=== PATIENT | male | born 1980 | race Caucasian/White ===

== ENCOUNTER → 2017-03-02 | Outpatient (CLI) | payer OTHER ==
--- NOTE | 2017-03-02 16:58 | REP ---
RIGHT HAND, FOUR VIEWS: HISTORY: Contusion. There is no acute fracture or dislocation. The joint spaces are normal in appearance. IMPRESSION: There is no acute fracture or dislocation. Signed by Teodoro Pressley MD 03/03/2017 08:16 A
== END ==
LOC: M WUC 15:31
PROVIDERS: ATTEND Physician Assistant
DX: S60.221A Contusion of right hand, initial encounter (principal); Y92.89 Other specified places as the place of occurrence of the external cause; X58.XXXA Exposure to other specified factors, initial encounter; Y99.9 Unspecified external cause status

== ENCOUNTER 2018-11-22 10:27 | Emergency (ER) | payer OTHER ==
[~2018-11-22] VITALS: Ht 180.3 cm; Wt 113.6 kg
[2018-11-22 10:27] VITALS: BP 139/90
[2018-11-22] MEDS ORDERED: BACT800T5 PO (11:17)
[2018-11-22] MEDS: BACTRIM 160MG/800MG DS TAB PO ONE (11:21)
== END 2018-11-22 11:26 | disposition home or self-care (01) ==
LOC: M ED 10:27
DX: L03.115 Cellulitis of right lower limb (principal)

== ENCOUNTER 2019-11-20 14:56 | Day surgery (SDC) | payer BC, OTHER ==
[~2019-11-20] VITALS: Ht 180.3 cm; Wt 126.1 kg
[~2019-11-20 14:56] MED LIST: BACT800T5 PO
[2019-11-20 15:41] LABS: BASO # 0.1 10^3/uL (0.0-0.2); BASO % 0.8 % (0.0-1.0); EOS # 0.3 10^3/uL (0.0-0.5); EOS % 2.5 % (0.0-3.0); HEMATOCRIT 43.6 % (42.0-52.0); HEMOGLOBIN 14.9 g/dl (13.5-17.5); LYMPH # 2.8 10^3/uL (1.5-5.0); LYMPH % 27.7 % (24.0-44.0); MEAN CORPUSCULAR HEMOGLOBIN 31.3 pg (27.0-33.0); MEAN CORPUSCULAR HGB CONC 34.2 g/dl (32.0-36.5); MEAN CORPUSCULAR VOLUME 91.6 fl (80.0-96.0); MONO # 0.8 10^3/uL (0.0-0.8); MONO % 7.8 % (0.0-5.0); NEUTROPHILS # 6.1 10^3/uL (1.5-8.5); NEUTROPHILS % 60.8 % (36.0-66.0); PLATELET COUNT, AUTOMATED 252 10^3/uL (150-450); RED BLOOD COUNT 4.76 10^6/uL (4.30-6.10)
[2019-11-20 16:10] LABS: ALBUMIN 3.9 GM/DL (3.2-5.2); BILIRUBIN,DIRECT 0.1 MG/DL (0.0-0.2); BILIRUBIN,TOTAL 0.7 MG/DL (0.2-1.0); TOTAL PROTEIN 7.4 GM/DL (6.4-8.2)
[2019-11-20] MEDS ORDERED: ISOVUE-370 76% 100ML VIAL (Q9967) As Ordered ONE (16:29)
[2019-11-20] MEDS ORDERED: PIPERACILLIN/TAZOBACTAM SOD 3.375 GM in D5W MINI-BAG PLUS 50 ML IV ONE (17:45)
--- NOTE | 2019-11-20 18:20 | REP ---
HISTORY: Right lower quadrant pain. COMPARISON: 12/03/2011 CONTRAST: 100 mL [id number] The lung bases are clear and unchanged. Since the last examination diffuse low density has developed throughout the hepatic parenchyma. The spleen, pancreas, adrenal glands and kidneys are unchanged. There is a right renal cyst, status quo. The gallbladder is contracted, but otherwise is within normal limits. There is no free fluid or free air. The abdominal aorta and periaortic regions are within normal limits. There is abnormal fatty infiltration of the mesoappendix with abnormal enhancement and enlargement of the appendix when compared to the prior exam. There is no free fluid in the pelvis. There is no pelvic mass or adenopathy. Bone window technique throughout the examination shows the osseous structures to be within normal limits. IMPRESSION: 1. Findings consistent with acute appendicitis. 2. There is diffuse fatty infiltration of the liver. 3. There is a single right renal cyst. Electronically Signed by Richard Ruiz DO 11/20/2019 07:30 P
[2019-11-20] MEDS ORDERED: MORPHINE 4 MG/ML 1ML VIAL/SYRINGE (J2270) IV STA (20:38)
[2019-11-20] MEDS ORDERED: NICOTINE 14 MG/24 HR TRANSDERMAL TD SCH (21:00)
[2019-11-20] MEDS ORDERED: fentaNYL 250 MCG/5 ML INJECTION (J3010) As Ordered ONE (21:13)
[2019-11-20] MEDS ORDERED: MIDAZOLAM INJ 2 MG/2 ML VIAL (J2250) As Ordered ONE (21:14)
[2019-11-20] MEDS ORDERED: propofoL 200 MG/20 ML VIAL As Ordered ONE (21:16)
[2019-11-20] MEDS ORDERED: dexameTHASONE 4 MG/ML 1ML VIAL (J1100 PER 1MG) As Ordered ONE (21:16)
[2019-11-20] MEDS ORDERED: LIDOCAINE 2% INJ 100 MG/5 ML SDV (FOR ANES.) As Ordered ONE (21:16)
[2019-11-20] MEDS ORDERED: ONDANSETRON 4MG/2ML VIAL (J2405) As Ordered ONE (21:16)
[2019-11-20] MEDS ORDERED: BUPIVACAINE/EPIN 0.25% 30 ML VIAL As Ordered ONE (21:16)
[2019-11-20] MEDS ORDERED: ROCURONIUM BROMIDE 50 MG/5 ML VIAL As Ordered ONE ×2 (21:16→22:10)
[2019-11-20] MEDS ORDERED: DESFLURANE 240 ML INHALANT As Ordered ONE (21:54)
[2019-11-20] MEDS ORDERED: SUGAMMADEX SODIUM 500 MG/5 ML VIAL (BRIDION) As Ordered ONE (22:08)
[2019-11-20] MEDS ORDERED: ACETAMINOPHEN 1000MG 100ML IV BTL (OFIRMEV) (J0131 PER 10MG) As Ordered ONE (22:14)
[2019-11-20] MEDS ORDERED: HYDR-3713 PO (22:30)
--- NOTE | 2019-11-20 22:36 | HPE ---
DATE OF ADMISSION: 11/20/2019 CHIEF COMPLAINT: The patient is a 39-year-old male who presented to the hospital with a history of right lower quadrant abdominal pain that started yesterday afternoon. It sort of went away in the evening and then this morning it came back and got worse. He tried eating around noon today, and the pain did not go away. It continued to persist, so he came in to be evaluated. He denies any fevers or chills. Slight nausea. No vomiting. No lack of appetite. No recent travel or trauma. No changes in medications. PAST MEDICAL HISTORY: Attention-deficit hyperactivity disorder (ADHD). PAST SURGICAL HISTORY: Vasectomy and surgery to untie his tongue. ALLERGIES: EFFEXOR. MEDICATIONS: None currently. SOCIAL HISTORY: He smokes three-quarters of a pack a day. Denies drug or alcohol abuse. FAMILY HISTORY: Noncontributory. REVIEW OF SYSTEMS: Pertinent positives and negatives as stated in the history of the present illness. PHYSICAL EXAMINATION: General: Alert and oriented times three. No acute distress. Vital signs: Temperature 97.6, pulse 71, respirations 18, blood pressure 128/65, pulse ox 97% on room air. HEENT: Pupils equally round and react to light and accommodation. Heart: S1, S2, regular rate and rhythm. Lungs: Clear to auscultation bilaterally. Abdomen: Soft, tender to palpation right lower quadrant. Localized guarding. No rigidity. Extremities: No clubbing, cyanosis or edema. LABORATORY DATA: White count 10, hemoglobin 14.9, platelets 252. CT abdomen and pelvis was done, compared to a prior CT and it now shows abnormal fatty infiltration of the mesoappendix with abnormal enhancement and enlargement of the appendix compared to prior exam. No free fluid in the pelvis. No masses or adenopathy. Findings consistent with appendicitis. Diffuse fatty infiltration of the liver and a single right renal cyst. ASSESSMENT/PLAN: The patient is a 39-year-old male, signs and symptoms consistent with acute appendicitis. Recommendation is to proceed with laparoscopic, possible open appendectomy. Risks and benefits of the procedure not limited to, but including bleeding, infection, hernia formation, damage to surrounding structures, and need for further surgery were discussed in detail with the patient. Informed consent was obtained and procedure was planned for this evening. Postoperatively, since his labs were normal, if the surgery goes well, I will plan for discharge home this evening as long as his pain is controlled. He claims that he will likely go home tonight. If not, I will discharge him home in the morning.
[2019-11-20] MEDS ORDERED: fentaNYL 100 MCG/2 ML INJECTION (J3010) As Ordered ONE (22:38)
[2019-11-20] MEDS: fentaNYL 100 MCG/2 ML INJECTION (J3010) IV PRN ×2 (22:39→22:45)
[2019-11-20] MEDS ORDERED: ONDANSETRON 4MG/2ML VIAL (J2405) IV PRN (22:45)
[2019-11-20] MEDS ORDERED: oxyCODONE 5MG TAB PO PRN (22:45)
[2019-11-20] MEDS ORDERED: LR 1,000 ML IV SCH (22:45)
[2019-11-20 23:26] VITALS: BP 121/76
[2019-11-21] VITALS (7 sets, daily range): BP systolic 114–134; BP diastolic 77–84
--- NOTE | 2019-11-21 00:30 | RO ---
DATE OF PROCEDURE: 11/20/2019 PREOPERATIVE DIAGNOSIS: Acute appendicitis. POSTOPERATIVE DIAGNOSIS: Acute appendicitis. PROCEDURE: Laparoscopic appendectomy. SURGEON: Dr. Jorge Leon SALAD COUNTER ATTENDANT: None. ANESTHESIA: General. ESTIMATED BLOOD LOSS: 5 mL. The patient is a 39-year-old male who presented with right lower quadrant pain, found to have acute appendicitis. Recommendation was to proceed with laparoscopic, possible open appendectomy. Risks and benefits of the procedure not limited to but including bleeding, infection, hernia formation, damage to surrounding structures, and need for further surgery were discussed in detail with the patient. Informed consent was obtained and procedure was planned. DESCRIPTION OF PROCEDURE: The patient was brought operating room three, after sufficient sedation, the abdomen was sterilely prepped and draped. Next, a time-out was done to confirm proper patient, proper procedure. Following that, a 5 mm incision was made in left upper quadrant, Veress needle inserted and the abdomen was insufflated 15 mmHg. Veress needle was then removed, and a 5 mm Optiview port was used to gain access to the abdomen. Once the abdomen was entered, 8 mm port was placed supraumbilically in the midline, another 5 mm port suprapubically in the midline. The right lower quadrant was examined. There was severe inflammation, appeared to be some ischemic fat surrounding the appendix and large lobules. Once the appendix was identified, it was dissected free using Enseal all way until the base was reached. Once the base was reached, the base of the appendix was ligated with two PDS Endoloops and then amputated using the Enseal, brought out through a 5 mm Endo Catch bag. The right lower quadrant was aspirated. No signs of any purulent fluid or pus. The appendix was then brought out through the supraumbilical port site. The fascia at that port site was closed with an #0 Vicryl suture on a Trip-Oliver needle. The abdomen was then desufflated. Skin incisions were closed with #4-0 Vicryl subcuticular sutures. The abdomen was cleaned and dried. Steri-Strips, 4x4, and tape were applied, thus ending procedure.
[2019-11-21] MEDS: NORCO, ANEXSIA 5/325MG TABLET (HYDROcodone/ACETAMINOPHEN) PO PRN ×2 (00:33→06:39)
== END 2019-11-21 08:17 | disposition home or self-care (01) ==
LOC: M ED 14:56 → M SDC 17:48 → M MSPAV 23:26 → M SDC 11-21 08:17
PROVIDERS: ATTEND Surgery
DX: K35.890 Other acute appendicitis without perforation or gangrene (principal); F90.9 Attention-deficit hyperactivity disorder, unspecified type; F17.218 Nicotine dependence, cigarettes, with other nicotine-induced disorders; Z79.899 Other long term (current) drug therapy; Z88.8 Allergy status to other drugs, medicaments and biological substances
CPT/HCPCS: 44970; 74177; 80047; 80076; 81001; 83690; 85025; 88304; 96365; 99283; J0131; J1100; J2250; J2405; J2543; J3010; Q9967

== ENCOUNTER → 2020-01-11 | Outpatient (CLI) | payer BC ==
[~2020-01-11] MED LIST changes: +HYDR-3713 PO
== END ==
LOC: M LABSMTC 12:50
PROVIDERS: ATTEND Family Medicine
DX: Z11.59 Encounter for screening for other viral diseases (principal)
CPT/HCPCS: C9803; U0003

== ENCOUNTER → 2020-06-23 | Outpatient (REF) | payer BC ==
[2020-06-23 13:28] LABS: BASO # 0.1 10^3/uL (0.0-0.2); EOS # 0.4 10^3/uL (0.0-0.5); EOS % 3.9 % (0.0-3.0); HEMATOCRIT 46.6 % (42.0-52.0); HEMOGLOBIN 15.2 g/dl (13.5-17.5); LYMPH # 3.3 10^3/uL (1.5-5.0); MEAN CORPUSCULAR HEMOGLOBIN 30.6 pg (27.0-33.0); MEAN CORPUSCULAR HGB CONC 32.6 g/dl (32.0-36.5); MEAN CORPUSCULAR VOLUME 93.8 fl (80.0-96.0); MONO # 0.7 10^3/uL (0.0-0.8); MONO % 8.2 % (0.0-5.0); NEUTROPHILS # 4.5 10^3/uL (1.5-8.5); NEUTROPHILS % 49.7 % (36.0-66.0); PLATELET COUNT, AUTOMATED 281 10^3/uL (150-450); RED BLOOD COUNT 4.97 10^6/uL (4.30-6.10)
[2020-06-23 14:20] LABS: ALT/SGPT 66 U/L (12-78); BILIRUBIN,TOTAL 0.5 MG/DL (0.2-1.0); BLOOD UREA NITROGEN 12 MG/DL (7-18); CARBON DIOXIDE LEVEL 23 MEQ/L (21-32); CHLORIDE LEVEL 109 MEQ/L (98-107); CHOLESTEROL LEVEL 193 MG/DL (<200); CHOLESTEROL RISK RATIO 6.655 (<5); CREATININE FOR GFR 0.93 MG/DL (0.70-1.30); GLOMERULAR FILTRATION RATE > 60.0 (>60); GLUCOSE, FASTING 100 MG/DL (70-100); HDL CHOLESTEROL 29 MG/DL (>40); LDL CHOLESTEROL 103 MG/DL (<100); NON-HDL-C 164 MG/DL; POTASSIUM SERUM 4.6 MEQ/L (3.5-5.1); SODIUM LEVEL 140 MEQ/L (136-145); TOTAL PROTEIN 7.4 GM/DL (6.4-8.2); TRIGLYCERIDES LEVEL 306 MG/DL (<150)
== END ==
LOC: M SFHCADAM 08:41
PROVIDERS: ATTEND Family Medicine
DX: Z00.00 Encounter for general adult medical examination without abnormal findings (principal)

== ENCOUNTER 2020-11-26 16:14 | Emergency (ER) | payer OTHER ==
[~2020-11-26] VITALS: Ht 180.3 cm; Wt 117.8 kg
[2020-11-26] MEDS ORDERED: ESOM40CA35 (16:28)
[2020-11-26] MEDS ORDERED: IBUP1TAB7 PO (16:28)
[2020-11-26] MEDS ORDERED: AMPH1CAP16 (16:28)
--- NOTE | 2020-11-26 17:46 | REPVR ---
PROCEDURE INFORMATION: Exam: CT Head Without Contrast Exam date and time: 11/26/2020 5:28 PM Age: 40 years old Clinical indication: Injury or trauma; Other: Hit head fork lift; Blunt trauma (contusions or hematomas) TECHNIQUE: Imaging protocol: Computed tomography of the head without contrast. Axial and coronal reformatted images were created and reviewed. Radiation optimization: All CT scans at this facility use at least one of these dose optimization techniques: automated exposure control; mA and/or kV adjustment per patient size (includes targeted exams where dose is matched to clinical indication); or iterative reconstruction. COMPARISON: No relevant prior studies available. FINDINGS: Brain: No CT evidence of acute intracranial hemorrhage or acute territorial infarction. No significant mass effect or midline shift. Basal cisterns patent. Cerebral ventricles: Normal in size and configuration. Bones/joints: No acute osseous abnormality. Paranasal sinuses: Mild ethmoid, sphenoid and left maxillary sinus mucosal thickening. Mastoid air cells: Grossly unremarkable. Soft tissues: Grossly unremarkable. IMPRESSION: 1. No CT evidence of acute intracranial pathology. 2. Additional findings, as above. Electronically signed by: Donovan Ann On 11/26/2020 17:47:13 PM
--- NOTE | 2020-11-26 17:52 | REPVR ---
PROCEDURE INFORMATION: Exam: CT Cervical Spine Without Contrast Exam date and time: 11/26/2020 5:28 PM Age: 40 years old Clinical indication: Injury or trauma; Other: Hit head fork lift; Blunt trauma TECHNIQUE: Imaging protocol: Computed tomography images of the cervical spine without contrast. Axial, coronal and sagittal reformatted images were created and reviewed. Radiation optimization: All CT scans at this facility use at least one of these dose optimization techniques: automated exposure control; mA and/or kV adjustment per patient size (includes targeted exams where dose is matched to clinical indication); or iterative reconstruction. COMPARISON: No relevant prior studies available. FINDINGS: Bones/joints: Straightening of the normal cervical lordosis. No CT evidence of acute fracture, dislocation or subluxation. Alignment anatomic. Vertebral body heights maintained. Discs/Spinal canal/Neural foramina: Intervertebral disc spaces preserved. No significant spinal canal or neural foraminal stenosis. Lungs: Grossly unremarkable. Soft tissues: Grossly unremarkable. IMPRESSION: 1. No CT evidence of acute cervical spine traumatic injury. 2. Additional findings, as above. Electronically signed by: Donovan Ann On 11/26/2020 17:52:59 PM
[2020-11-26] MEDS ORDERED: diazePAM 5MG TABLET PO ONE (18:20)
--- NOTE | 2020-11-26 19:31 | REPVR ---
PROCEDURE INFORMATION: Exam: MR Cervical Spine Without Contrast Exam date and time: 11/26/2020 6:17 PM Age: 40 years old Clinical indication: Injury or trauma; Work related; Crushing; Injury date: Today; Injury details: PT stood up and hit head on metal lift, neck pain and left upper extremity numbness; Additional info: Left hand numbness S/P axial load injury TECHNIQUE: Imaging protocol: Multiplanar magnetic resonance images of the cervical spine without contrast. COMPARISON: CT Spine,cervical w/o contrast 11/26/2020 5:26 PM FINDINGS: Straightening of the normal cervical lordosis. Alignment anatomic. Bone marrow signal normal. No MR evidence of acute fracture, dislocation or subluxation. Vertebral body heights maintained. No abnormal signal within the visualized spinal cord. No fluid collection or soft tissue mass. Intervertebral disc spaces preserved. No significant spinal canal or neural foraminal stenosis. IMPRESSION: No acute pathology. Electronically signed by: Donovan Ann On 11/26/2020 19:31:46 PM
[2020-11-26 19:46] VITALS: BP 136/85
[2020-11-26] MEDS ORDERED: CYCL-707 PO (19:56)
[2020-11-26] MEDS ORDERED: KETO10TAB PO (19:56)
[2020-11-26] MEDS ORDERED: KETOROLAC TROMETHAMINE 10 MG TAB PO ONE (20:00)
[2020-11-26] MEDS ORDERED: CYCLOBENZAPRINE 10MG TABLET PO ONE (20:00)
== END 2020-11-26 20:12 | disposition home or self-care (01) ==
LOC: M ED 16:14
DX: S09.90XA Unspecified injury of head, initial encounter (principal); S16.1XXA Strain of muscle, fascia and tendon at neck level, initial encounter; W22.8XXA Striking against or struck by other objects, initial encounter; Y92.9 Unspecified place or not applicable; Y93.9 Activity, unspecified; Y99.0 Civilian activity done for income or pay; F17.200 Nicotine dependence, unspecified, uncomplicated; F12.10 Cannabis abuse, uncomplicated; Z88.8 Allergy status to other drugs, medicaments and biological substances; Z79.899 Other long term (current) drug therapy

== ENCOUNTER → 2021-06-12 | Outpatient (CLI) | payer OTHER ==
[~2021-06-12] MED LIST changes: +AMPH1CAP16; +CYCL-707 PO; +ESOM40CA35; +IBUP1TAB7 PO; +KETO10TAB PO
--- NOTE | 2021-06-12 12:46 | REP ---
INDICATION: CERVICALGIA. NO HISTORY OF TRAUMA WHATSOEVER COMPARISON: 10/31/2013 TECHNIQUE: Seven views FINDINGS: Vertebral body height and alignment is unchanged and again seen to be within normal limits. The disc spaces are symmetric and well maintained throughout status quo. Flexion and extension is not limited radiographically. The intervertebral foramina are ample bilaterally and the neural canal is not encroached upon. The facet joints are well aligned bilaterally. IMPRESSION: Within normal limits and essentially unchanged compared to the prior exam. <Electronically signed by Richard Ruiz > 06/12/21 [id number]
--- NOTE | 2021-06-12 14:54 | REP ---
INDICATION: CERVICALGIA. COMPARISON: None. TECHNIQUE: Four views FINDINGS: Vertebral body height and alignment is within normal limits. The disc spaces are symmetric and well maintained. There is no spondylolysis or spondylolisthesis. The pedicles are intact bilaterally. IMPRESSION: Unremarkable lumbosacral spine series. There is no evidence of an acute osseous abnormality. <Electronically signed by Richard Ruiz > 06/12/21 [id number]
== END ==
LOC: M RAD 12:02
PROVIDERS: ATTEND Chiropractor
DX: M54.2 Cervicalgia (principal)

== ENCOUNTER → 2021-06-25 | Outpatient (CLI) | payer OTHER | LOC: M LABSMTC 10:51 | PROVIDERS: ATTEND Pediatrics | DX: Z11.52 Encounter for screening for COVID-19 (principal) ==

== ENCOUNTER → 2021-07-14 | Outpatient (CLI) | payer OTHER | LOC: M SLEEP HO 11:36 | PROVIDERS: ATTEND Physician Assistant | DX: G47.30 Sleep apnea, unspecified (principal) ==

== ENCOUNTER → 2021-08-13 | Outpatient (REF) | payer OTHER | LOC: M SFHCADAM 18:25 | PROVIDERS: ATTEND Family Medicine | DX: R05.9 Cough, unspecified (principal) ==

== ENCOUNTER → 2021-10-22 | Outpatient (REF) | payer OTHER | LOC: M SFHCADAM 08:44 | PROVIDERS: ATTEND Family Medicine | DX: E78.5 Hyperlipidemia, unspecified (principal); R05.9 Cough, unspecified; F41.8 Other specified anxiety disorders; Z53.9 Procedure and treatment not carried out, unspecified reason ==

== ENCOUNTER → 2021-11-19 | Outpatient (CLI) | payer OTHER | LOC: M PLAIMG 09:33 | PROVIDERS: ATTEND Physician Assistant | DX: M25.512 Pain in left shoulder (principal) ==

== ENCOUNTER → 2022-07-25 | Outpatient (CLI) | payer OTHER ==
[~2022-07-25] MED LIST changes: -AMPH1CAP16; +AMPH1CAP16 PO; +MELO15TA28 PO; +PANT40TA29 PO; +PARO5TAB PO
== END ==
LOC: M LABSMTC 11:22
PROVIDERS: ATTEND Anesthesiology
DX: Z01.812 Encounter for preprocedural laboratory examination (principal); Z11.52 Encounter for screening for COVID-19

== ENCOUNTER 2022-07-28 10:52 | Day surgery (SDC) | payer OTHER ==
[~2022-07-28] VITALS: Ht 180.3 cm; Wt 116.1 kg
[~2022-07-28 10:52] MED LIST changes: +LIDOCAINE 2% 100MG/5ML SDV (FOR ANES.) As Ordered ONE; +MIDAZOLAM INJ 2MG/2ML VIAL (J2250 PER 1MG) As Ordered ONE; +ONDANSETRON 4MG 2ML VIAL As Ordered ONE; +ROCURONIUM BROMIDE 50MG/5ML VIAL As Ordered ONE; +fentaNYL 100 MCG/2 ML INJECTION As Ordered ONE; +propofoL 200 MG/20 ML VIAL As Ordered ONE
[2022-07-28] MEDS ORDERED: LR 1,000 ML IV SCH ×2 (11:15→14:40)
[2022-07-28] MEDS ORDERED: LIDOCAINE 1% SDV 5ML VIAL SC PRN (11:15)
[2022-07-28] MEDS ORDERED: CIPRODEX OTIC SUSP 7.5ML As Ordered ONE (12:22)
[2022-07-28] MEDS ORDERED: PHENYLEPHRINE 0.5% NASAL SPRAY 15 ML As Ordered ONE (12:22)
[2022-07-28] MEDS ORDERED: METHYLENE BLUE 0.5% (5MG/ML) 10 ML AMP (PROVAYBLUE) As Ordered ONE (12:50)
[2022-07-28] MEDS ORDERED: EPINEPHrine 1MG/ML INJ 30ML MD-VIAL As Ordered ONE (12:50)
[2022-07-28] MEDS ORDERED: SUGAMMADEX SODIUM 500 MG/5 ML VIAL (BRIDION) As Ordered ONE (13:32)
[2022-07-28] MEDS ORDERED: fentaNYL 100 MCG/2 ML INJECTION As Ordered ONE (13:33)
[2022-07-28] MEDS ORDERED: ACETAMINOPHEN 1000MG 100ML IV BAG As Ordered ONE (13:34)
[2022-07-28] MEDS ORDERED: ROCURONIUM BROMIDE 50MG/5ML VIAL As Ordered ONE (13:41)
[2022-07-28] MEDS ORDERED: fentaNYL 100 MCG/2 ML INJECTION IV PRN (14:40)
[2022-07-28] MEDS ORDERED: ONDANSETRON 4MG 2ML VIAL IV PRN (14:40)
[2022-07-28] MEDS: PERCOCET 5MG/325MG TAB PO PRN ×2 (15:08→15:35)
[2022-07-28 16:40] VITALS: BP 135/77
== END 2022-07-28 16:45 | disposition home or self-care (01) ==
LOC: M SDC 10:52
PROVIDERS: ATTEND Otolaryngology
DX: H65.91 Unspecified nonsuppurative otitis media, right ear (principal); J39.2 Other diseases of pharynx; J34.2 Deviated nasal septum; H69.91 Unspecified Eustachian tube disorder, right ear; H90.71 Mixed conductive and sensorineural hearing loss, unilateral, right ear, with unrestricted hearing on the contralateral side; F90.9 Attention-deficit hyperactivity disorder, unspecified type; K21.9 Gastro-esophageal reflux disease without esophagitis; F41.9 Anxiety disorder, unspecified; G47.30 Sleep apnea, unspecified; Z79.899 Other long term (current) drug therapy; Z88.8 Allergy status to other drugs, medicaments and biological substances; F17.210 Nicotine dependence, cigarettes, uncomplicated
CPT/HCPCS: 42999; 69436; 88305; 88331; 93005; J0131; J0171; J1100; J2250; J2405; J3010

== ENCOUNTER → 2022-08-25 | Outpatient (CLI) | payer OTHER ==
[~2022-08-25] MED LIST changes: -LIDOCAINE 2% 100MG/5ML SDV (FOR ANES.) As Ordered ONE; -MIDAZOLAM INJ 2MG/2ML VIAL (J2250 PER 1MG) As Ordered ONE; -ONDANSETRON 4MG 2ML VIAL As Ordered ONE; -ROCURONIUM BROMIDE 50MG/5ML VIAL As Ordered ONE; -fentaNYL 100 MCG/2 ML INJECTION As Ordered ONE; -propofoL 200 MG/20 ML VIAL As Ordered ONE
== END ==
LOC: M PLARAD 14:01
PROVIDERS: ATTEND Otolaryngology
DX: C85.11 Unspecified B-cell lymphoma, lymph nodes of head, face, and neck (principal)
CPT/HCPCS: 78815; A9552

== ENCOUNTER → 2022-09-16 | Outpatient (CLI) | payer OTHER ==
[~2022-09-16] MED LIST changes: +LIDOCAINE 1% MDV 20ML VIAL As Ordered ONE
[2022-09-16 13:10] VITALS: BP 131/85
[2022-09-16 13:38] LABS: BASO # 0.1 10^3/uL (0.0-0.2); BASO % 0.9 % (0.0-1.0); EOS # 0.3 10^3/uL (0.0-0.5); EOS % 2.9 % (0.0-3.0); HEMATOCRIT 46.4 % (42.0-52.0); HEMOGLOBIN 15.5 g/dl (13.5-17.5); LYMPH # 3.7 10^3/uL (1.5-5.0); LYMPH % 32.8 % (24.0-44.0); MEAN CORPUSCULAR HEMOGLOBIN 30.9 pg (27.0-33.0); MEAN CORPUSCULAR HGB CONC 33.4 g/dl (32.0-36.5); MEAN CORPUSCULAR VOLUME 92.4 fl (80.0-96.0); PLATELET COUNT, AUTOMATED 287 10^3/uL (150-450); RED BLOOD COUNT 5.02 10^6/uL (4.30-6.10); WHITE BLOOD COUNT 11.2 10^3/uL (4.0-10.0)
== END ==
LOC: M IRPRO 12:13
PROVIDERS: ATTEND Internal Medicine Medical Oncology
DX: C85.11 Unspecified B-cell lymphoma, lymph nodes of head, face, and neck (principal)

== ENCOUNTER → 2022-09-30 | Outpatient (CLI) | payer OTHER ==
[~2022-09-30] MED LIST changes: -LIDOCAINE 1% MDV 20ML VIAL As Ordered ONE
== END ==
LOC: M LABSMTC 10:59
PROVIDERS: ATTEND Anesthesiology
DX: Z01.812 Encounter for preprocedural laboratory examination (principal); Z11.52 Encounter for screening for COVID-19

== ENCOUNTER 2022-10-05 10:58 | Day surgery (SDC) | payer OTHER ==
[~2022-10-05] VITALS: Ht 180.3 cm; Wt 123.1 kg
[2022-10-05] MEDS ORDERED: LR 1,000 ML IV SCH (11:10)
[2022-10-05] MEDS ORDERED: IBUP-1114 PO (11:50)
[2022-10-05] MEDS ORDERED: LIDOCAINE 2% 100MG/5ML SDV (FOR ANES.) As Ordered ONE (12:20)
[2022-10-05] MEDS ORDERED: ROCURONIUM BROMIDE 50MG/5ML VIAL As Ordered ONE ×2 (12:20→14:30)
[2022-10-05] MEDS ORDERED: propofoL 200 MG/20 ML VIAL As Ordered ONE ×2 (12:21→14:28)
[2022-10-05] MEDS ORDERED: SUGAMMADEX SODIUM 500 MG/5 ML VIAL (BRIDION) As Ordered ONE (12:21)
[2022-10-05] MEDS ORDERED: ONDANSETRON 4MG 2ML VIAL As Ordered ONE (12:23)
[2022-10-05] MEDS ORDERED: ACETAMINOPHEN 1000MG 100ML IV BAG As Ordered ONE (12:27)
[2022-10-05] MEDS ORDERED: MIDAZOLAM INJ 2MG/2ML VIAL As Ordered ONE (13:20)
[2022-10-05] MEDS ORDERED: fentaNYL 100 MCG/2 ML INJECTION As Ordered ONE (13:20)
[2022-10-05] MEDS ORDERED: OXYMETAZOLINE 0.05% NASAL SPRAY (AFRIN) As Ordered ONE (14:04)
[2022-10-05] MEDS ORDERED: fentaNYL 100 MCG/2 ML INJECTION IV PRN (14:40)
[2022-10-05] MEDS ORDERED: ONDANSETRON 4MG 2ML VIAL IV PRN (14:40)
[2022-10-05] MEDS ORDERED: MORPHINE 2 MG/ML 1ML VIAL IV PRN (14:40)
[2022-10-05] MEDS ORDERED: oxyCODONE 5MG TAB PO PRN (14:40)
[2022-10-05 15:37] VITALS: BP 132/76
== END 2022-10-05 15:45 | disposition home or self-care (01) ==
LOC: M SDC 10:58
PROVIDERS: ATTEND Otolaryngology
DX: C85.11 Unspecified B-cell lymphoma, lymph nodes of head, face, and neck (principal); K21.9 Gastro-esophageal reflux disease without esophagitis; F90.9 Attention-deficit hyperactivity disorder, unspecified type; H90.71 Mixed conductive and sensorineural hearing loss, unilateral, right ear, with unrestricted hearing on the contralateral side; F41.9 Anxiety disorder, unspecified; M25.512 Pain in left shoulder; F17.210 Nicotine dependence, cigarettes, uncomplicated; Z79.899 Other long term (current) drug therapy; Z79.52 Long term (current) use of systemic steroids; Z88.8 Allergy status to other drugs, medicaments and biological substances
CPT/HCPCS: 42826; 88302; J1100; J2250; J2405; J3010

== ENCOUNTER → 2022-10-25 | Outpatient (CLI) | payer OTHER ==
[~2022-10-25] MED LIST changes: +IBUP-1114 PO
== END ==
LOC: M LABSMTC 10:52
PROVIDERS: ATTEND Anesthesiology
DX: Z01.812 Encounter for preprocedural laboratory examination (principal); Z20.822 Contact with and (suspected) exposure to COVID-19

== ENCOUNTER 2022-10-29 09:59 | Day surgery (SDC) | payer OTHER ==
[~2022-10-29] VITALS: Ht 180.3 cm; Wt 123.4 kg
[~2022-10-29 09:59] MED LIST changes: +LIDOCAINE 2% 100MG/5ML SDV (FOR ANES.) As Ordered ONE; +ONDANSETRON 4MG 2ML VIAL As Ordered ONE; +ROCURONIUM BROMIDE 50MG/5ML VIAL As Ordered ONE; +propofoL 200 MG/20 ML VIAL As Ordered ONE
[2022-10-29] MEDS ORDERED: LR 1,000 ML IV SCH (10:20)
[2022-10-29] MEDS ORDERED: BACITRACIN OINTMENT 30GM TUBE As Ordered ONE (11:42)
[2022-10-29] MEDS ORDERED: THROMBIN 5,000 UNITS VIAL As Ordered ONE (11:42)
[2022-10-29] MEDS ORDERED: OXYMETAZOLINE 0.05% NASAL SPRAY (AFRIN) As Ordered ONE ×2 (11:43→12:43)
[2022-10-29] MEDS ORDERED: MIDAZOLAM INJ 2MG/2ML VIAL As Ordered ONE (11:47)
[2022-10-29] MEDS ORDERED: fentaNYL 100 MCG/2 ML INJECTION As Ordered ONE ×2 (11:47→12:35)
[2022-10-29] MEDS ORDERED: ACETAMINOPHEN 1000MG 100ML IV BAG As Ordered ONE (12:28)
[2022-10-29] MEDS ORDERED: SUGAMMADEX SODIUM 500 MG/5 ML VIAL (BRIDION) As Ordered ONE (13:00)
[2022-10-29] MEDS ORDERED: fentaNYL 100 MCG/2 ML INJECTION IV PRN (13:25)
[2022-10-29] MEDS ORDERED: MORPHINE 2 MG/ML 1ML VIAL IV PRN (13:25)
[2022-10-29] MEDS ORDERED: ONDANSETRON 4MG 2ML VIAL IV PRN (13:25)
[2022-10-29] MEDS ORDERED: oxyCODONE 5MG TAB PO PRN (13:25)
[2022-10-29] MEDS ORDERED: KETOROLAC 30 MG/ML 1ML VIAL IV ONE (14:45)
[2022-10-29 15:30] VITALS: BP 117/69
== END 2022-10-29 15:39 | disposition home or self-care (01) ==
LOC: M SDC 09:59
PROVIDERS: ATTEND Otolaryngology
DX: C85.11 Unspecified B-cell lymphoma, lymph nodes of head, face, and neck (principal); K21.9 Gastro-esophageal reflux disease without esophagitis; F41.9 Anxiety disorder, unspecified; F90.9 Attention-deficit hyperactivity disorder, unspecified type; G47.33 Obstructive sleep apnea (adult) (pediatric); F17.210 Nicotine dependence, cigarettes, uncomplicated; Z88.8 Allergy status to other drugs, medicaments and biological substances; Z79.899 Other long term (current) drug therapy
CPT/HCPCS: 31535; 88305; J0131; J1100; J1885; J2250; J2405; J3010

== ENCOUNTER → 2023-07-04 | Outpatient (REF) | payer OTHER ==
[~2023-07-04] MED LIST changes: +CEPH25SS PO; -LIDOCAINE 2% 100MG/5ML SDV (FOR ANES.) As Ordered ONE; -ONDANSETRON 4MG 2ML VIAL As Ordered ONE; -ROCURONIUM BROMIDE 50MG/5ML VIAL As Ordered ONE; -propofoL 200 MG/20 ML VIAL As Ordered ONE
[2023-07-04 13:27] LABS: BASO # 0.1 10^3/uL (0.0-0.2); BASO % 1.1 % (0.0-1.0); EOS # 0.5 10^3/uL (0.0-0.5); EOS % 4.5 % (0.0-3.0); HEMATOCRIT 47.1 % (42.0-52.0); HEMOGLOBIN 15.8 g/dl (13.5-17.5); LYMPH # 4.2 10^3/uL (1.5-5.0); LYMPH % 36.1 % (24.0-44.0); MEAN CORPUSCULAR HGB CONC 33.5 g/dl (32.0-36.5); MEAN CORPUSCULAR VOLUME 95.3 fl (80.0-96.0); MONO # 0.9 10^3/uL (0.0-0.8); MONO % 7.3 % (2.0-8.0); NEUTROPHILS # 5.9 10^3/uL (1.5-8.5); NEUTROPHILS % 50.7 % (36.0-66.0); PLATELET COUNT, AUTOMATED 269 10^3/uL (150-450); RED BLOOD COUNT 4.94 10^6/uL (4.30-6.10); WHITE BLOOD COUNT 11.6 10^3/uL (4.0-10.0)
[2023-07-04 13:40] LABS: HEMOGLOBIN A1c 5.2 % (4.0-6.0)
[2023-07-04 13:47] LABS: ALBUMIN 3.9 G/DL (3.2-5.2); ALKALINE PHOSPHATASE 98 U/L (46-116); ALT/SGPT 76 U/L (7.0-40); AST/SGOT 39 U/L (<34); BILIRUBIN,TOTAL 0.5 MG/DL (0.3-1.2); BLOOD UREA NITROGEN 13 MG/DL (9-23); CALCIUM LEVEL 8.7 MG/DL (8.5-10.1); CARBON DIOXIDE LEVEL 21 MMOL/L (20-31); CHLORIDE LEVEL 108 MMOL/L (98-107); CHOLESTEROL LEVEL 181 MG/DL (<200); CHOLESTEROL RISK RATIO 5.23 (<5); CREATININE FOR GFR 0.72 MG/DL (0.70-1.30); GLOMERULAR FILTRATION RATE > 60.0 (>60); GLUCOSE, FASTING 101 MG/DL (60-100); HDL CHOLESTEROL 34.6 MG/DL (>40); LDL CHOLESTEROL 97.6 MG/DL (<100); NON-HDL-C 146.4 MG/DL; POTASSIUM SERUM 4.5 MMOL/L (3.5-5.1); SODIUM LEVEL 139 MMOL/L (136-145); TRIGLYCERIDES LEVEL 244 MG/DL (<150)
[2023-07-04 13:51] LABS: FREE T4 1.09 NG/DL (0.89-1.76); THYROID STIMULATING HORMONE 1.358 uIU/ML (0.55-4.78)
[2023-07-04 14:56] LABS: ERYTHROCYTE SEDIMENTATION RATE 24 mm/hr (0-15)
== END ==
LOC: M SFHCADAM 08:31
PROVIDERS: ATTEND Physician Assistant
DX: K21.9 Gastro-esophageal reflux disease without esophagitis (principal); Z68.37 Body mass index [BMI] 37.0-37.9, adult; L03.114 Cellulitis of left upper limb; L02.512 Cutaneous abscess of left hand

== ENCOUNTER → 2023-07-05 | Outpatient (CLI) | payer OTHER ==
[~2023-07-05] MED LIST changes: +OXYC1TAB23 PO
== END ==
LOC: M SOG 07:54
PROVIDERS: ATTEND Physician Assistant
DX: M79.645 Pain in left finger(s) (principal)

== ENCOUNTER 2023-07-06 09:29 | Day surgery (SDC) | payer OTHER ==
[~2023-07-06] VITALS: Ht 180.3 cm; Wt 117.6 kg
[~2023-07-06 09:29] MED LIST changes: -OXYC1TAB23 PO; +PIPERACILLIN/TAZOBACTAM SOD 3.375 GM in D5W MINI-BAG PLUS 50 ML IV ONE
[2023-07-06] MEDS ORDERED: KETOROLAC 60MG 2ML VIAL As Ordered ONE (09:47)
[2023-07-06] MEDS ORDERED: ONDANSETRON 4MG 2ML VIAL As Ordered ONE (09:47)
[2023-07-06] MEDS ORDERED: propofoL 200 MG/20 ML VIAL As Ordered ONE ×2 (09:47→10:43)
[2023-07-06] MEDS ORDERED: LIDOCAINE 2% 100MG/5ML SDV (FOR ANES.) As Ordered ONE (09:47)
[2023-07-06] MEDS ORDERED: ZOSYN 3.375GM VIAL As Ordered ONE (09:48)
[2023-07-06] MEDS ORDERED: fentaNYL 100 MCG/2 ML INJECTION As Ordered ONE (09:48)
[2023-07-06] MEDS ORDERED: BACITRACIN OINTMENT 30GM TUBE As Ordered ONE (09:48)
[2023-07-06] MEDS ORDERED: VANCOMYCIN 1000MG/20ML VIAL As Ordered ONE (09:48)
[2023-07-06] MEDS ORDERED: MIDAZOLAM INJ 2MG/2ML VIAL As Ordered ONE (09:48)
[2023-07-06] MEDS ORDERED: ceFAZolin 1GM VIAL As Ordered ONE (10:26)
[2023-07-06] MEDS ORDERED: LR 1,000 ML IV SCH (11:00)
[2023-07-06] MEDS ORDERED: ONDANSETRON 4MG 2ML VIAL IV PRN (11:00)
[2023-07-06] MEDS ORDERED: HYDROMORPHONE HCL 0.5 MG/ 0.5 ML SYRINGE IV PRN (11:00)
[2023-07-06] MEDS ORDERED: oxyCODONE 5MG TAB PO PRN (11:00)
[2023-07-06] MEDS ORDERED: fentaNYL 100 MCG/2 ML INJECTION IV PRN (11:00)
[2023-07-06] MEDS ORDERED: OXYC1TAB23 PO (11:08)
[2023-07-06 12:05] VITALS: BP 129/88; TEMP 97.5; O2SAT 98
== END 2023-07-06 12:25 | disposition home or self-care (01) ==
LOC: M SDC 09:29
PROVIDERS: ATTEND Orthopaedic Surgery Hand Surgery
DX: L02.512 Cutaneous abscess of left hand (principal); C85.90 Non-Hodgkin lymphoma, unspecified, unspecified site; G47.30 Sleep apnea, unspecified; Z79.899 Other long term (current) drug therapy; K21.9 Gastro-esophageal reflux disease without esophagitis; Z88.8 Allergy status to other drugs, medicaments and biological substances
CPT/HCPCS: 26011; 87070; 87075; 87077; 87186; 87205; J0665; J0690; J1885; J2250; J2543; J3010; J3370

== ENCOUNTER → 2024-05-02 | Outpatient (REF) | payer OTHER ==
[~2024-05-02] MED LIST changes: +OXYC1TAB23 PO; -PIPERACILLIN/TAZOBACTAM SOD 3.375 GM in D5W MINI-BAG PLUS 50 ML IV ONE
[2024-05-02 13:33] LABS: ALBUMIN 4.3 G/DL (3.2-5.2); ALKALINE PHOSPHATASE 109 U/L (46-116); ALT/SGPT 44 U/L (7.0-40); AST/SGOT 28 U/L (<34); BILIRUBIN,TOTAL 0.6 MG/DL (0.3-1.2); BLOOD UREA NITROGEN 13 MG/DL (9-23); CALCIUM LEVEL 10.1 MG/DL (8.5-10.1); CARBON DIOXIDE LEVEL 25 MMOL/L (20-31); CHLORIDE LEVEL 109 MMOL/L (98-107); CREATININE FOR GFR 0.78 MG/DL (0.70-1.30); GLOMERULAR FILTRATION RATE > 60.0 (>60); GLUCOSE, FASTING 97 MG/DL (60-100); POTASSIUM SERUM 4.3 MMOL/L (3.5-5.1); SODIUM LEVEL 139 MMOL/L (136-145); TOTAL PROTEIN 7.5 G/DL (5.7-8.2)
== END ==
LOC: M SFHCADAM 09:05
PROVIDERS: ATTEND Family Medicine
DX: B35.1 Tinea unguium (principal)

== ENCOUNTER 2024-08-10 10:28 | Day surgery (SDC) | payer OTHER ==
[~2024-08-10] VITALS: Ht 180.3 cm; Wt 113.9 kg
[2024-08-10] MEDS ORDERED: LIDOCAINE 2% 100MG/5ML SDV (FOR ANES.) As Ordered ONE (13:19)
[2024-08-10] MEDS ORDERED: propofoL 200 MG/20 ML VIAL As Ordered ONE (13:19)
[2024-08-10 13:42] VITALS: TEMP 97
[2024-08-10 14:02] VITALS: BP 123/77; O2SAT 95
== END 2024-08-10 12:07 | disposition home or self-care (01) ==
LOC: M OPP 10:28
PROVIDERS: ATTEND Surgery
DX: Z12.11 Encounter for screening for malignant neoplasm of colon (principal); K64.0 First degree hemorrhoids; K21.9 Gastro-esophageal reflux disease without esophagitis; M19.90 Unspecified osteoarthritis, unspecified site; F41.9 Anxiety disorder, unspecified; F90.9 Attention-deficit hyperactivity disorder, unspecified type; G47.33 Obstructive sleep apnea (adult) (pediatric); Z99.89 Dependence on other enabling machines and devices; F17.210 Nicotine dependence, cigarettes, uncomplicated; F12.20 Cannabis dependence, uncomplicated; Z88.8 Allergy status to other drugs, medicaments and biological substances; Z79.899 Other long term (current) drug therapy; Z85.72 Personal history of non-Hodgkin lymphomas